=== PATIENT | female | born 1950 | race Caucasian/White ===

== ENCOUNTER 2021-12-01 10:21 | Inpatient (IN) ==
[2021-12-01] MEDS ORDERED: ALBUTEROL/IPRATROPIUM 3 ML NEB RESP TX STA (10:48)
[2021-12-01] MEDS ORDERED: SODIUM CHLORIDE 0.9% 1,000 ML IV STA ×2 (10:48→11:34)
[2021-12-01] MEDS ORDERED: methylPREDNISolone SOD SUC 125 MG/2 ML VIAL IV STA (10:48)
[2021-12-01] MEDS ORDERED: ONDANSETRON 4 MG/2 ML VIAL IV ONE (10:48)
[2021-12-01] MEDS ORDERED: ALBUTEROL 2.5 MG/3 ML NEB RESP TX STA (10:48)
[2021-12-01] MEDS ORDERED: CEFEPIME 1,000 MG in SODIUM CHLORIDE 0.9% 100 ML IV STA (11:34)
[2021-12-01] MEDS ORDERED: VANCOMYCIN INJ 1,000 MG in SODIUM CHLORIDE 0.9% 250 ML IV STA (11:34)
[2021-12-01] MEDS ORDERED: NOREPINEPHRINE 8 MG in SODIUM CHLORIDE 0.9% 242 ML IV PRN (12:14)
[2021-12-01 12:17] LABS: Hematocrit 18.7 VOL% (35.7-47.0); Lymphocytes # 0.1 10*3/uL (1.4-4.0); Lymphocytes % 17.1 % (21.3-54.2); Mean Corpuscular HGB Conc 32.6 GM/DL (32-36); Mean Platelet Volume 9.7 FL (9.6-12.0); Monocytes # 0.1 10*3/uL (0.11-0.8); Monocytes % 14.6 % (1.7-12.7); Neutrophils % 68.3 % (38.7-73.9); Platelet Count 265 T/CUMM (130-400); Red Cell Distribution Width 15.6 % (9.3-17.3)
[2021-12-01 12:20] LABS: Arterial Base Excess iSTAT -5 MMOL/L (-2.5-2.5); Arterial O2 Saturation iSTAT 100 % (95-100); Arterial PCO2 iSTAT 48 MM HG (35-48); Arterial PO2 iSTAT 233 MM HG (80-95); Arterial Total CO2 iSTAT 23 MMO/L (23-27); Arterial pH iSTAT 7.273 (7.35-7.45)
[2021-12-01 12:27] LABS: Hemoglobin 6.1 GM/DL (12.0-16.0); White Blood Count 0.4 T/CUMM (4-12)
[2021-12-01 12:29] LABS: INR 1.1; PT Patient Result 11.9 SECS (10.5-12.0)
[2021-12-01] MEDS ORDERED: SODIUM CHLORIDE 0.9% 1,000 ML IV PRN (12:31)
[2021-12-01 12:39] LABS: Albumin 2.2 G/DL (3.4-5.0); Bilirubin,Total 0.8 MG/DL (0.20-1.00); Osmolality,Calculated 283.2 MOS/KG (273-304); Potassium 4.4 MMOL/L (3.5-5.1); Total Protein 5.8 G/DL (6.4-8.2)
[2021-12-01 13:00] LABS: Band Neutrophils 6 % (0-10); Lymphocytes 28 % (20-55); Nucleated Red Blood Cells 1 (0-5)
[2021-12-01 13:02] LABS: Ovalocytes Slight; Platelet Estimate Normal; Polychromasia Slight
[2021-12-01 13:05] LABS: Anisocytosis Slight; Total Cells Counted 100
[2021-12-01] MEDS ORDERED: ALBUTEROL 2.5 MG/3 ML NEB RESP TX PRN (13:14)
[2021-12-01] MEDS ORDERED: PHENYLEPHRINE DRIP 40 MG/250 ML PREMIX IV ONE (13:58)
[2021-12-01] MEDS: PHENYLEPHRINE DRIP 40 MG/250 ML PREMIX IV PRN (14:00)
[2021-12-01] MEDS ORDERED: ETOMIDATE 20 MG/10 ML VIAL IV ONE (14:04)
[2021-12-01] MEDS ORDERED: ROCURONIUM 100 MG/10 ML VIAL IV ONE (14:04)
[2021-12-01] MEDS ORDERED: HYDROCORTISONE 100 MG VIAL IV SCH (15:30)
[2021-12-01] MEDS: MICAFUNGIN 100 MG in SODIUM CHLORIDE 0.9% 100 ML IV SCH (17:01)
[2021-12-01] MEDS ORDERED: LACTATED RINGERS 1,000 ML IV ONE (17:02)
[2021-12-01 17:15] LABS: Mucus,Urine Occasional /LPF (Occasional); RBC,Urine 4 /HPF (0-4); Squamous Epithelial Cell,Urine Occasional /HPF (0-10); Urine Appearance Clear (Clear); Urine Color Yellow (Yellow)
[2021-12-01 17:16] LABS: Bilirubin,Urine Negative (Negative); Blood, Urine Moderate mg/dL (Negative); Glucose,Urine (UA) Negative (Negative); Ketones,Urine Negative (Negative); Nitrite,Urine Negative (Negative); Protein,Urine 100 mg/dL (Negative); Urine Specific Gravity 1.015 (1.001-1.035); Urine Urobilinogen 0.2 eU/dL (<2.0)
[2021-12-01] MEDS: methylPREDNISolone SOD SUC 125 MG/2 ML VIAL IV SCH (17:52)
[2021-12-01] MEDS ORDERED: MIDAZOLAM 2 MG/2 ML VIAL IV ONE (18:11)
[2021-12-01] MEDS: ALBUTEROL/IPRATROPIUM 3 ML NEB RESP TX SCH (19:22)
[2021-12-01] MEDS ORDERED: FILGRASTIM-SNDZ 300 MCG/0.5 ML SYRINGE SUBCUT SCH (21:00)
[2021-12-01] MEDS: MIDAZOLAM 100 MG in SODIUM CHLORIDE 0.9% 80 ML IV PRN (21:50)
[2021-12-02] MEDS: methylPREDNISolone SOD SUC 125 MG/2 ML VIAL IV SCH ×3 (01:11→16:33)
[2021-12-02] MEDS: fentaNYL INJ 1,250 MCG in SODIUM CHLORIDE 0.9% 225 ML IV PRN ×2 (01:25→20:34)
[2021-12-02 03:52] LABS: ABG Base Excess -10.8 MMOL/L (-2.5-2.5); ABG HCO3 16.1 MMOL/L (20-26); ABG Oxygen Saturation 99.2 % (95-100); ABG PCO2 64.6 MM HG (35-48); ABG TCO2 18.7 MMOL/L (23-27)
[2021-12-02 03:58] LABS: ABG PH 7.113 (7.35-7.45)
[2021-12-02 04:03] LABS: Hematocrit 35.3 VOL% (35.7-47.0); Hemoglobin 11.1 GM/DL (12.0-16.0); Immature Granulocytes % 13.3 %; Immature Granulocytes Absolute 0.02 #; Mean Corpuscular HGB Conc 31.4 GM/DL (32-36); Mean Corpuscular Volume 88.7 FL (87-102); Mean Platelet Volume 9.6 FL (9.6-12.0); NRBC # 0.03 10*3/uL; Neutrophils % 46.7 % (38.7-73.9); Platelet Count 203 T/CUMM (130-400); Red Blood Count 3.98 MC/CUMM (3.8-5.5); Red Cell Distribution Width 16.5 % (9.3-17.3)
[2021-12-02] MEDS ORDERED: SODIUM BICARBONATE 50 MEQ/50 ML VIAL IV ONE (04:06)
[2021-12-02 04:07] LABS: White Blood Count 0.2 T/CUMM (4-12)
[2021-12-02 04:12] LABS: INR 1.2; PT Patient Result 12.9 SECS (10.5-12.0)
[2021-12-02 04:18] LABS: Albumin 1.7 G/DL (3.4-5.0); Bilirubin,Total 1.4 MG/DL (0.20-1.00); Calcium 7.9 MG/DL (8.5-10.1); Osmolality,Calculated 285.8 MOS/KG (273-304); Potassium 4.8 MMOL/L (3.5-5.1); Total Protein 6.4 G/DL (6.4-8.2)
[2021-12-02 04:37] LABS: Lymphocytes 60 % (20-55); Platelet Estimate Adequate; Total Cells Counted 100
[2021-12-02 04:38] LABS: Burr Cells Few
[2021-12-02] MEDS: ALBUTEROL/IPRATROPIUM 3 ML NEB RESP TX SCH ×4 (07:14→19:40)
[2021-12-02] MEDS ORDERED: MAGNESIUM SULF RIDER 2 GM/50 ML PREMIX IV ONE (08:18)
[2021-12-02] MEDS ORDERED: FILGRASTIM-SNDZ 300 MCG/0.5 ML SYRINGE SUBCUT SCH (09:00)
[2021-12-02 09:08] LABS: ABG Base Excess -7.1 MMOL/L (-2.5-2.5); ABG HCO3 18.7 MMOL/L (20-26); ABG Oxygen Saturation 98.8 % (95-100); ABG PCO2 48.1 MM HG (35-48); ABG PH 7.235 (7.35-7.45)
[2021-12-02] MEDS ORDERED: dimenhyDRINATE 50 MG TABLET PO PRN (09:22)
[2021-12-02] MEDS ORDERED: ALPRAZolam 0.5 MG TABLET PO PRN (09:25)
[2021-12-02] MEDS: CEFEPIME 1,000 MG in SODIUM CHLORIDE 0.9% 100 ML IV SCH (09:27)
[2021-12-02] MEDS ORDERED: FAMOTIDINE 20 MG/2 ML VIAL IV SCH (09:30)
[2021-12-02] MEDS: ALBUMIN 25% 25 GM/100 ML VIAL IV SCH ×2 (09:40→17:16)
[2021-12-02] MEDS ORDERED: VANCOMYCIN INJ 1,000 MG in SODIUM CHLORIDE 0.9% 250 ML IV PRN (10:14)
[2021-12-02] MEDS ORDERED: VANCOMYCIN INJ 1,000 MG in SODIUM CHLORIDE 0.9% 250 ML IV ONE (10:30)
[2021-12-02] MEDS: FILGRASTIM-SNDZ 300 MCG/0.5 ML SYRINGE SUBCUT SCH (10:47)
[2021-12-02] MEDS: PHENYLEPHRINE DRIP 40 MG/250 ML PREMIX IV PRN ×2 (14:38→23:04)
[2021-12-02] MEDS ORDERED: ALPRAZolam 0.5 MG TABLET PO SCH (15:00)
[2021-12-02] MEDS: MICAFUNGIN 100 MG in SODIUM CHLORIDE 0.9% 100 ML IV SCH (16:36)
[2021-12-02] MEDS: buPROPion XL 150 MG TABLET PO SCH (20:22)
[2021-12-03] MEDS: methylPREDNISolone SOD SUC 125 MG/2 ML VIAL IV SCH ×3 (00:36→15:13)
[2021-12-03] MEDS: ALBUTEROL/IPRATROPIUM 3 ML NEB RESP TX SCH ×4 (00:40→19:35)
[2021-12-03] MEDS: ALBUMIN 25% 25 GM/100 ML VIAL IV SCH ×2 (02:20→08:55)
[2021-12-03 04:45] LABS: ABG Base Excess -3.7 MMOL/L (-2.5-2.5); ABG HCO3 21.3 MMOL/L (20-26); ABG Oxygen Saturation 99.5 % (95-100); ABG PCO2 30.9 MM HG (35-48); ABG PH 7.421 (7.35-7.45); ABG TCO2 18.9 MMOL/L (23-27); Hematocrit 23.1 VOL% (35.7-47.0); Hemoglobin 7.8 GM/DL (12.0-16.0); Immature Granulocytes % 4.5 %; Immature Granulocytes Absolute 0.02 #; Lymphocytes # 0.1 10*3/uL (1.4-4.0); Lymphocytes % 11.4 % (21.3-54.2); Mean Corpuscular HGB Conc 33.8 GM/DL (32-36); Mean Corpuscular Volume 83.1 FL (87-102); Mean Platelet Volume 9.5 FL (9.6-12.0); Monocytes # 0.1 10*3/uL (0.11-0.8); Monocytes % 11.4 % (1.7-12.7); Neutrophils % 72.7 % (38.7-73.9); Platelet Count 125 T/CUMM (130-400); Red Blood Count 2.78 MC/CUMM (3.8-5.5); Red Cell Distribution Width 16.7 % (9.3-17.3)
[2021-12-03 04:46] LABS: White Blood Count 0.4 T/CUMM (4-12)
[2021-12-03 05:02] LABS: Albumin 2.5 G/DL (3.4-5.0); Bilirubin,Total 1.2 MG/DL (0.20-1.00); Calcium 8.8 MG/DL (8.5-10.1); Osmolality,Calculated 304.8 MOS/KG (273-304); Potassium 3.3 MMOL/L (3.5-5.1); Total Protein 5.9 G/DL (6.4-8.2)
[2021-12-03 05:05] LABS: Band Neutrophils 8 % (0-10); Burr Cells Slight; Hypochromia Slight; Lymphocytes 28 % (20-55); Microcytosis Slight; Total Cells Counted 100
[2021-12-03] MEDS: CEFEPIME 1,000 MG in SODIUM CHLORIDE 0.9% 100 ML IV SCH ×2 (07:37→20:26)
[2021-12-03] MEDS: FAMOTIDINE 20 MG/2 ML VIAL IV SCH (08:55)
[2021-12-03] MEDS: buPROPion XL 150 MG TABLET PO SCH ×2 (08:56→20:26)
[2021-12-03] MEDS: FILGRASTIM-SNDZ 300 MCG/0.5 ML SYRINGE SUBCUT SCH (09:01)
[2021-12-03] MEDS ORDERED: ALPRAZolam 0.5 MG TABLET PO ONE (09:49)
[2021-12-03] MEDS: POTASSIUM CHLORIDE 20 MEQ TABLET PO PRN ×3 (09:59→15:12)
[2021-12-03] MEDS: fentaNYL INJ 1,250 MCG in SODIUM CHLORIDE 0.9% 225 ML IV PRN (10:22)
[2021-12-03] MEDS: MORPHINE 2 MG/1 ML SYRINGE IV PRN (13:48)
[2021-12-03] MEDS: ALPRAZolam 0.5 MG TABLET PO SCH ×2 (15:13→20:26)
[2021-12-03] MEDS ORDERED: GLUCAGON 1 MG VIAL IM PRN (15:54)
[2021-12-03] MEDS ORDERED: DEXTROSE 10% 250 ML BAG IV PRN (15:56)
[2021-12-03] MEDS: MICAFUNGIN 100 MG in SODIUM CHLORIDE 0.9% 100 ML IV SCH (17:06)
[2021-12-03] MEDS ORDERED: VANCOMYCIN INJ 1,000 MG in SODIUM CHLORIDE 0.9% 250 ML IV ONE (22:00)
[2021-12-03] MEDS: MIDAZOLAM 100 MG in SODIUM CHLORIDE 0.9% 80 ML IV PRN (22:50)
[2021-12-04] MEDS: ALBUTEROL/IPRATROPIUM 3 ML NEB RESP TX SCH ×4 (00:20→19:30)
[2021-12-04] MEDS: methylPREDNISolone SOD SUC 125 MG/2 ML VIAL IV SCH ×2 (00:30→10:32)
[2021-12-04 04:23] LABS: ABG Base Excess -2.1 MMOL/L (-2.5-2.5); ABG HCO3 22.6 MMOL/L (20-26); ABG Oxygen Saturation 97.8 % (95-100); ABG PCO2 32.2 MM HG (35-48); ABG PH 7.435 (7.35-7.45); ABG TCO2 20.2 MMOL/L (23-27)
[2021-12-04 04:29] LABS: Basophils % 1.9 % (0.0-0.8); Hematocrit 24.2 VOL% (35.7-47.0); Hemoglobin 8.1 GM/DL (12.0-16.0); Immature Granulocytes % 1.9 %; Immature Granulocytes Absolute 0.02 #; Lymphocytes # 0.1 10*3/uL (1.4-4.0); Lymphocytes % 7.7 % (21.3-54.2); Mean Corpuscular HGB Conc 33.5 GM/DL (32-36); Mean Corpuscular Volume 84.6 FL (87-102); Mean Platelet Volume 10.7 FL (9.6-12.0); Monocytes # 0.1 10*3/uL (0.11-0.8); Monocytes % 9.6 % (1.7-12.7); Neutrophils % 78.9 % (38.7-73.9); Platelet Count 86 T/CUMM (130-400); Red Blood Count 2.86 MC/CUMM (3.8-5.5); Red Cell Distribution Width 17.2 % (9.3-17.3)
[2021-12-04 04:43] LABS: Albumin 2.3 G/DL (3.4-5.0); Calcium 8.9 MG/DL (8.5-10.1); Osmolality,Calculated 319.3 MOS/KG (273-304); Potassium 3.9 MMOL/L (3.5-5.1); Total Protein 5.5 G/DL (6.4-8.2)
[2021-12-04 04:54] LABS: Band Neutrophils 3 % (0-10); Burr Cells Slight; Eosinophils 1 % (0-10); Hypochromia Slight; Lymphocytes 9 % (20-55); Total Cells Counted 100
[2021-12-04 04:55] LABS: Microcytosis Slight
[2021-12-04] MEDS: FAMOTIDINE 20 MG/2 ML VIAL IV SCH (10:29)
[2021-12-04] MEDS: ALPRAZolam 0.5 MG TABLET PO SCH ×3 (10:30→20:45)
[2021-12-04] MEDS: buPROPion XL 150 MG TABLET PO SCH ×2 (10:30→20:45)
[2021-12-04] MEDS: POTASSIUM CHLORIDE 20 MEQ TABLET PO PRN (10:30)
[2021-12-04] MEDS: FILGRASTIM-SNDZ 300 MCG/0.5 ML SYRINGE SUBCUT SCH (10:30)
[2021-12-04] MEDS: methylPREDNISolone SOD SUC 40 MG/1 ML VIAL IV SCH ×2 (10:30→18:52)
[2021-12-04] MEDS: CEFEPIME 1,000 MG in SODIUM CHLORIDE 0.9% 100 ML IV SCH ×2 (10:31→22:30)
[2021-12-04] MEDS: INSULIN REGULAR 100 UNIT/ML SUBCUT SCH ×2 (12:31→18:52)
[2021-12-04] MEDS: MICAFUNGIN 100 MG in SODIUM CHLORIDE 0.9% 100 ML IV SCH (18:30)
[2021-12-04] MEDS: VANCOMYCIN INJ 1,000 MG in SODIUM CHLORIDE 0.9% 250 ML IV SCH (20:45)
[2021-12-05] MEDS: INSULIN REGULAR 100 UNIT/ML SUBCUT SCH ×5 (00:28→23:58)
[2021-12-05] MEDS: MIDAZOLAM 100 MG in SODIUM CHLORIDE 0.9% 80 ML IV PRN (01:14)
[2021-12-05] MEDS: ALBUTEROL/IPRATROPIUM 3 ML NEB RESP TX SCH ×4 (01:20→18:47)
[2021-12-05] MEDS: methylPREDNISolone SOD SUC 40 MG/1 ML VIAL IV SCH ×3 (02:44→18:07)
[2021-12-05 05:17] LABS: Basophils % 2.2 % (0.0-0.8); Hematocrit 24.4 VOL% (35.7-47.0); Hemoglobin 7.9 GM/DL (12.0-16.0); Immature Granulocytes % 5.5 %; Lymphocytes # 0.1 10*3/uL (1.4-4.0); Lymphocytes % 6.6 % (21.3-54.2); Mean Corpuscular HGB Conc 32.4 GM/DL (32-36); Mean Corpuscular Volume 88.7 FL (87-102); Monocytes # 0.2 10*3/uL (0.11-0.8); Monocytes % 11.5 % (1.7-12.7); NRBC # 0.02 10*3/uL; Neutrophils % 74.2 % (38.7-73.9); Platelet Count 63 T/CUMM (130-400); Red Blood Count 2.75 MC/CUMM (3.8-5.5); Red Cell Distribution Width 18.3 % (9.3-17.3); White Blood Count 1.8 T/CUMM (4-12)
[2021-12-05 05:18] LABS: ABG Base Excess -3.3 MMOL/L (-2.5-2.5); ABG HCO3 21.7 MMOL/L (20-26); ABG Oxygen Saturation 97.9 % (95-100); ABG PCO2 36.1 MM HG (35-48); ABG PH 7.381 (7.35-7.45)
[2021-12-05 05:43] LABS: Albumin 1.9 G/DL (3.4-5.0); Bilirubin,Total 0.7 MG/DL (0.20-1.00); Calcium 7.7 MG/DL (8.5-10.1); Osmolality,Calculated 323.9 MOS/KG (273-304); Potassium 3.9 MMOL/L (3.5-5.1); Total Protein 4.9 G/DL (6.4-8.2)
[2021-12-05 05:52] LABS: Band Neutrophils 7 % (0-10); Hypochromia 1+; Lymphocytes 11 % (20-55); Metamyelocytes 2 %; Myelocytes 3 %; Platelet Estimate Decreased; Total Cells Counted 100
[2021-12-05] MEDS: POTASSIUM CHLORIDE 20 MEQ TABLET PO PRN (06:25)
[2021-12-05] MEDS: FAMOTIDINE 20 MG/2 ML VIAL IV SCH (09:41)
[2021-12-05] MEDS: ALPRAZolam 0.5 MG TABLET PO SCH ×3 (09:41→21:09)
[2021-12-05] MEDS: buPROPion XL 150 MG TABLET PO SCH ×2 (09:41→21:09)
[2021-12-05] MEDS ORDERED: ALBUMIN 25% 25 GM/100 ML VIAL IV ONE (10:30)
[2021-12-05] MEDS ORDERED: POTASSIUM PHOSPHATE 30 MMOL in SODIUM CHLORIDE 0.9% 250 ML IV ONE (11:00)
[2021-12-05] MEDS: CEFEPIME 1,000 MG in SODIUM CHLORIDE 0.9% 100 ML IV SCH ×2 (11:35→23:27)
[2021-12-05] MEDS: FILGRASTIM-SNDZ 300 MCG/0.5 ML SYRINGE SUBCUT SCH (11:39)
[2021-12-05] MEDS: DEXTROSE 5% 1,000 ML IV SCH (11:39)
[2021-12-05] MEDS: MORPHINE 2 MG/1 ML SYRINGE IV PRN (11:40)
[2021-12-05] MEDS: MICAFUNGIN 100 MG in SODIUM CHLORIDE 0.9% 100 ML IV SCH (16:27)
[2021-12-05] MEDS: VANCOMYCIN INJ 1,000 MG in SODIUM CHLORIDE 0.9% 250 ML IV SCH (21:09)
[2021-12-06] MEDS: ALBUTEROL/IPRATROPIUM 3 ML NEB RESP TX SCH ×4 (00:26→19:21)
[2021-12-06] MEDS: methylPREDNISolone SOD SUC 40 MG/1 ML VIAL IV SCH ×3 (02:51→17:41)
[2021-12-06 04:57] LABS: ABG HCO3 21.9 MMOL/L (20-26); ABG Oxygen Saturation 98.2 % (95-100); ABG PCO2 38.9 MM HG (35-48); ABG PH 7.363 (7.35-7.45); ABG TCO2 20.7 MMOL/L (23-27)
[2021-12-06 05:01] LABS: Basophils # 0.1 10*3/uL (0.0-0.2); Basophils % 1.4 % (0.0-0.8); Hematocrit 25.3 VOL% (35.7-47.0); Hemoglobin 8.3 GM/DL (12.0-16.0); Immature Granulocytes % 8.3 %; Immature Granulocytes Absolute 0.48 #; Lymphocytes # 0.2 10*3/uL (1.4-4.0); Mean Corpuscular HGB Conc 32.8 GM/DL (32-36); Mean Corpuscular Volume 89.1 FL (87-102); Mean Platelet Volume 11.5 FL (9.6-12.0); Monocytes # 0.5 10*3/uL (0.11-0.8); Monocytes % 7.8 % (1.7-12.7); NRBC # 0.04 10*3/uL; Neutrophils % 78.5 % (38.7-73.9); Red Blood Count 2.84 MC/CUMM (3.8-5.5); Red Cell Distribution Width 18.3 % (9.3-17.3)
[2021-12-06 05:07] LABS: Platelet Count 54 T/CUMM (130-400); White Blood Count 5.8 T/CUMM (4-12)
[2021-12-06 05:19] LABS: Albumin 2.3 G/DL (3.4-5.0); Bilirubin,Total 0.6 MG/DL (0.20-1.00); Calcium 7.9 MG/DL (8.5-10.1); Osmolality,Calculated 314.7 MOS/KG (273-304); Potassium 5.1 MMOL/L (3.5-5.1); Total Protein 5.2 G/DL (6.4-8.2)
[2021-12-06 05:31] LABS: Band Neutrophils 1 % (0-10); Eosinophils 1 % (0-10); Lymphocytes 2 % (20-55); Metamyelocytes 1 %; Myelocytes 1 %; Promyelocytes 3 %; Total Cells Counted 100
[2021-12-06 05:32] LABS: Microcytosis 1+; Platelet Estimate Decreased; Tear Drop Cells Slight
[2021-12-06] MEDS: DEXTROSE 5% 1,000 ML IV SCH (06:15)
[2021-12-06] MEDS: INSULIN REGULAR 100 UNIT/ML SUBCUT SCH ×4 (06:15→23:44)
[2021-12-06] MEDS: ALPRAZolam 0.5 MG TABLET PO SCH ×3 (08:21→20:48)
[2021-12-06] MEDS: FAMOTIDINE 20 MG/2 ML VIAL IV SCH (08:21)
[2021-12-06] MEDS: buPROPion XL 150 MG TABLET PO SCH ×2 (08:21→20:47)
[2021-12-06] MEDS: FILGRASTIM-SNDZ 300 MCG/0.5 ML SYRINGE SUBCUT SCH (08:22)
[2021-12-06] MEDS: CEFEPIME 1,000 MG in SODIUM CHLORIDE 0.9% 100 ML IV SCH ×2 (10:02→23:44)
[2021-12-06] MEDS: DEXMEDETOMIDINE 200 MCG in SODIUM CHLORIDE 0.9% 48 ML IV PRN (16:22)
[2021-12-06] MEDS: MICAFUNGIN 100 MG in SODIUM CHLORIDE 0.9% 100 ML IV SCH (17:41)
[2021-12-06] MEDS: VANCOMYCIN INJ 1,000 MG in SODIUM CHLORIDE 0.9% 250 ML IV SCH (21:25)
[2021-12-07] MEDS: ALBUTEROL/IPRATROPIUM 3 ML NEB RESP TX SCH ×4 (01:06→19:05)
[2021-12-07] MEDS: methylPREDNISolone SOD SUC 40 MG/1 ML VIAL IV SCH ×3 (01:51→21:00)
[2021-12-07] MEDS: DEXTROSE 5% 1,000 ML IV SCH (03:17)
[2021-12-07 04:29] LABS: ABG HCO3 23.6 MMOL/L (20-26); ABG Oxygen Saturation 98.6 % (95-100); ABG PCO2 33.9 MM HG (35-48); ABG PH 7.436 (7.35-7.45); ABG TCO2 21.1 MMOL/L (23-27)
[2021-12-07 04:35] LABS: Basophils % 0.1 % (0.0-0.8); Hematocrit 26.2 VOL% (35.7-47.0); Hemoglobin 8.5 GM/DL (12.0-16.0); Immature Granulocytes % 9.5 %; Immature Granulocytes Absolute 1.27 #; Lymphocytes # 0.4 10*3/uL (1.4-4.0); Lymphocytes % 3.1 % (21.3-54.2); Mean Corpuscular HGB Conc 32.4 GM/DL (32-36); Mean Corpuscular Volume 87.3 FL (87-102); Mean Platelet Volume 12.9 FL (9.6-12.0); Monocytes # 0.8 10*3/uL (0.11-0.8); Monocytes % 6.1 % (1.7-12.7); NRBC # 0.05 10*3/uL; Neutrophils % 81.2 % (38.7-73.9); Red Cell Distribution Width 17.8 % (9.3-17.3)
[2021-12-07 04:50] LABS: Phosphorous 2.5 MG/DL (2.5-4.9)
[2021-12-07 04:55] LABS: Albumin 2.1 G/DL (3.4-5.0); Bilirubin,Total 0.8 MG/DL (0.20-1.00); Calcium 7.8 MG/DL (8.5-10.1); Osmolality,Calculated 309.7 MOS/KG (273-304); Platelet Count 72 T/CUMM (130-400); Potassium 5.2 MMOL/L (3.5-5.1); White Blood Count 13.4 T/CUMM (4-12)
[2021-12-07 05:01] LABS: Band Neutrophils 4 % (0-10); Lymphocytes 2 % (20-55); Platelet Estimate Decreased; Total Cells Counted 100
[2021-12-07 05:02] LABS: Hypochromia Slight; Microcytosis Slight
[2021-12-07] MEDS: INSULIN REGULAR 100 UNIT/ML SUBCUT SCH ×4 (05:11→23:45)
[2021-12-07] MEDS: FAMOTIDINE 20 MG/2 ML VIAL IV SCH (09:06)
[2021-12-07] MEDS: ALPRAZolam 0.5 MG TABLET PO SCH ×3 (09:07→21:00)
[2021-12-07] MEDS: buPROPion 75 MG TABLET PO SCH ×2 (09:27→21:00)
[2021-12-07] MEDS: buPROPion XL 150 MG TABLET PO SCH (09:27)
[2021-12-07] MEDS: MORPHINE 2 MG/1 ML SYRINGE IV PRN (10:56)
[2021-12-07] MEDS: CEFEPIME 1,000 MG in SODIUM CHLORIDE 0.9% 100 ML IV SCH ×2 (10:57→23:00)
[2021-12-07] MEDS: POLYETHYLENE GLYCOL POWDER 17 GM PACK PO SCH (11:38)
[2021-12-07] MEDS ORDERED: FUROSEMIDE 20 MG/2 ML VIAL IV ONE (11:51)
[2021-12-07] MEDS: fentaNYL INJ 1,250 MCG in SODIUM CHLORIDE 0.9% 225 ML IV PRN (11:54)
[2021-12-07 16:18] LABS: Calcium 7.8 MG/DL (8.5-10.1); Osmolality,Calculated 308.4 MOS/KG (273-304); Potassium 5.3 MMOL/L (3.5-5.1)
[2021-12-07] MEDS: VANCOMYCIN INJ 1,000 MG in SODIUM CHLORIDE 0.9% 250 ML IV SCH (21:00)
[2021-12-08] MEDS: ALBUTEROL/IPRATROPIUM 3 ML NEB RESP TX SCH ×4 (00:16→19:20)
[2021-12-08 03:34] LABS: Basophils # 0.1 10*3/uL (0.0-0.2); Basophils % 0.7 % (0.0-0.8); Hematocrit 28.4 VOL% (35.7-47.0); Hemoglobin 8.8 GM/DL (12.0-16.0); Immature Granulocytes % 10.1 %; Immature Granulocytes Absolute 1.19 #; Lymphocytes # 0.6 10*3/uL (1.4-4.0); Lymphocytes % 4.8 % (21.3-54.2); Mean Corpuscular Volume 88.8 FL (87-102); Mean Platelet Volume 12.4 FL (9.6-12.0); Monocytes # 0.6 10*3/uL (0.11-0.8); Monocytes % 5.3 % (1.7-12.7); NRBC # 0.11 10*3/uL; Neutrophils % 79.1 % (38.7-73.9); Platelet Count 102 T/CUMM (130-400); Red Cell Distribution Width 17.5 % (9.3-17.3); White Blood Count 11.7 T/CUMM (4-12)
[2021-12-08 03:35] LABS: ABG Base Excess 0.3 MMOL/L (-2.5-2.5); ABG HCO3 24.7 MMOL/L (20-26); ABG Oxygen Saturation 95.6 % (95-100); ABG PCO2 37.6 MM HG (35-48); ABG PH 7.422 (7.35-7.45); ABG PO2 82.1 MM HG (80-95); ABG TCO2 22.3 MMOL/L (23-27)
[2021-12-08 03:50] LABS: Albumin 2.1 G/DL (3.4-5.0); Bilirubin,Total 0.7 MG/DL (0.20-1.00); Calcium 7.9 MG/DL (8.5-10.1); Total Protein 5.1 G/DL (6.4-8.2)
[2021-12-08 04:10] LABS: Band Neutrophils 2 % (0-10); Lymphocytes 8 % (20-55); Nucleated Red Blood Cells 1 (0-5); Total Cells Counted 100
[2021-12-08 04:11] LABS: Hypochromia Slight; Microcytosis Slight
[2021-12-08] MEDS: INSULIN REGULAR 100 UNIT/ML SUBCUT SCH ×3 (05:37→17:59)
[2021-12-08] MEDS ORDERED: MIDAZOLAM 2 MG/2 ML VIAL IV ONE (07:35)
[2021-12-08] MEDS ORDERED: MIDAZOLAM 2 MG/2 ML VIAL ONE (07:37)
[2021-12-08] MEDS: methylPREDNISolone SOD SUC 40 MG/1 ML VIAL IV SCH ×2 (08:53→21:00)
[2021-12-08] MEDS: POLYETHYLENE GLYCOL POWDER 17 GM PACK PO SCH (08:53)
[2021-12-08] MEDS: ALPRAZolam 0.5 MG TABLET PO SCH ×3 (08:53→21:00)
[2021-12-08] MEDS: FAMOTIDINE 20 MG/2 ML VIAL IV SCH (08:54)
[2021-12-08] MEDS: buPROPion 75 MG TABLET PO SCH ×2 (08:54→21:00)
[2021-12-08] MEDS: CEFEPIME 1,000 MG in SODIUM CHLORIDE 0.9% 100 ML IV SCH ×2 (10:41→23:00)
[2021-12-08] MEDS: MORPHINE 2 MG/1 ML SYRINGE IV PRN (13:45)
[2021-12-08] MEDS: fentaNYL INJ 1,250 MCG in SODIUM CHLORIDE 0.9% 225 ML IV PRN (13:45)
[2021-12-08] MEDS ORDERED: ALTEPLASE 2 MG VIAL IV ONE (16:50)
[2021-12-08] MEDS: VANCOMYCIN INJ 1,000 MG in SODIUM CHLORIDE 0.9% 250 ML IV SCH (21:00)
[2021-12-09] MEDS: INSULIN REGULAR 100 UNIT/ML SUBCUT SCH ×4 (00:45→18:36)
[2021-12-09] MEDS: ALBUTEROL/IPRATROPIUM 3 ML NEB RESP TX SCH ×4 (00:55→19:29)
[2021-12-09 03:24] LABS: ABG Base Excess 0.8 MMOL/L (-2.5-2.5); ABG HCO3 25.1 MMOL/L (20-26); ABG Oxygen Saturation 95.6 % (95-100); ABG PCO2 39.1 MM HG (35-48); ABG PH 7.418 (7.35-7.45); ABG PO2 79.5 MM HG (80-95); ABG TCO2 23.7 MMOL/L (23-27)
[2021-12-09 03:32] LABS: Basophils % 0.4 % (0.0-0.8); Hematocrit 23.9 VOL% (35.7-47.0); Hemoglobin 7.5 GM/DL (12.0-16.0); Immature Granulocytes % 6.8 %; Immature Granulocytes Absolute 0.63 #; Lymphocytes # 0.6 10*3/uL (1.4-4.0); Lymphocytes % 6.1 % (21.3-54.2); Mean Corpuscular HGB Conc 31.4 GM/DL (32-36); Mean Corpuscular Volume 89.5 FL (87-102); Mean Platelet Volume 12.1 FL (9.6-12.0); Monocytes # 0.7 10*3/uL (0.11-0.8); NRBC # 0.05 10*3/uL; Neutrophils % 79.7 % (38.7-73.9); Platelet Count 106 T/CUMM (130-400); Red Blood Count 2.67 MC/CUMM (3.8-5.5); White Blood Count 9.3 T/CUMM (4-12)
[2021-12-09 03:51] LABS: Band Neutrophils 2 % (0-10); Hypochromia Slight; Lymphocytes 4 % (20-55); Microcytosis Slight; Total Cells Counted 100
[2021-12-09 03:59] LABS: Albumin 1.8 G/DL (3.4-5.0); Bilirubin,Total 0.6 MG/DL (0.20-1.00); Calcium 7.6 MG/DL (8.5-10.1); Osmolality,Calculated 301.8 MOS/KG (273-304); Total Protein 4.8 G/DL (6.4-8.2)
[2021-12-09] MEDS: methylPREDNISolone SOD SUC 40 MG/1 ML VIAL IV SCH ×2 (10:03→21:18)
[2021-12-09] MEDS: POLYETHYLENE GLYCOL POWDER 17 GM PACK PO SCH (10:03)
[2021-12-09] MEDS: FAMOTIDINE 20 MG/2 ML VIAL IV SCH (10:03)
[2021-12-09] MEDS: buPROPion 75 MG TABLET PO SCH ×2 (10:04→21:18)
[2021-12-09] MEDS: ALPRAZolam 0.5 MG TABLET PO SCH ×3 (10:04→21:18)
[2021-12-09] MEDS: QUEtiapine 25 MG TABLET PO SCH ×2 (10:35→21:18)
[2021-12-09] MEDS: fentaNYL INJ 1,250 MCG in SODIUM CHLORIDE 0.9% 225 ML IV PRN (11:25)
[2021-12-09] MEDS: CEFEPIME 1,000 MG in SODIUM CHLORIDE 0.9% 100 ML IV SCH ×2 (16:57→21:23)
[2021-12-09] MEDS: VANCOMYCIN INJ 1,000 MG in SODIUM CHLORIDE 0.9% 250 ML IV SCH (22:44)
[2021-12-10] MEDS: ALBUTEROL/IPRATROPIUM 3 ML NEB RESP TX SCH ×4 (00:05→19:41)
[2021-12-10] MEDS: INSULIN REGULAR 100 UNIT/ML SUBCUT SCH ×4 (00:53→18:49)
[2021-12-10] MEDS: CEFEPIME 1,000 MG in SODIUM CHLORIDE 0.9% 100 ML IV SCH ×2 (02:37→08:10)
[2021-12-10 04:11] LABS: ABG Base Excess 0.6 MMOL/L (-2.5-2.5); ABG HCO3 24.9 MMOL/L (20-26); ABG Oxygen Saturation 97.7 % (95-100); ABG PCO2 41.7 MM HG (35-48); ABG PH 7.394 (7.35-7.45); ABG TCO2 24.1 MMOL/L (23-27)
[2021-12-10 04:15] LABS: Basophils % 0.3 % (0.0-0.8); Hematocrit 22.1 VOL% (35.7-47.0); Hemoglobin 6.8 GM/DL (12.0-16.0); Immature Granulocytes % 7.5 %; Immature Granulocytes Absolute 0.71 #; Lymphocytes # 0.3 10*3/uL (1.4-4.0); Mean Corpuscular HGB Conc 30.8 GM/DL (32-36); Mean Corpuscular Volume 91.3 FL (87-102); Monocytes # 0.3 10*3/uL (0.11-0.8); Monocytes % 3.5 % (1.7-12.7); NRBC # 0.02 10*3/uL; Neutrophils % 85.7 % (38.7-73.9); Platelet Count 146 T/CUMM (130-400); Red Blood Count 2.42 MC/CUMM (3.8-5.5); Red Cell Distribution Width 16.8 % (9.3-17.3); White Blood Count 9.4 T/CUMM (4-12)
[2021-12-10 04:27] LABS: Osmolality,Calculated 295.4 MOS/KG (273-304); Potassium 5.3 MMOL/L (3.5-5.1)
[2021-12-10 04:35] LABS: Phosphorous 3.6 MG/DL (2.5-4.9)
[2021-12-10 04:43] LABS: Band Neutrophils 3 % (0-10); Hypochromia Slight; Lymphocytes 3 % (20-55); Microcytosis Slight; Platelet Estimate Adequate; Total Cells Counted 100
[2021-12-10] MEDS: POLYETHYLENE GLYCOL POWDER 17 GM PACK PO SCH (08:10)
[2021-12-10] MEDS: QUEtiapine 25 MG TABLET PO SCH ×2 (08:11→20:26)
[2021-12-10] MEDS: ALPRAZolam 0.5 MG TABLET PO SCH ×3 (08:11→20:26)
[2021-12-10] MEDS: methylPREDNISolone SOD SUC 40 MG/1 ML VIAL IV SCH ×2 (08:11→20:27)
[2021-12-10] MEDS: FAMOTIDINE 20 MG/2 ML VIAL IV SCH (08:11)
[2021-12-10] MEDS: buPROPion 75 MG TABLET PO SCH ×2 (08:11→20:27)
[2021-12-10] MEDS ORDERED: FUROSEMIDE 20 MG/2 ML VIAL IV PRN (10:03)
[2021-12-10] MEDS: fentaNYL INJ 1,250 MCG in SODIUM CHLORIDE 0.9% 225 ML IV PRN (11:30)
[2021-12-10] MEDS: cefTRIAXone 1,000 MG in SODIUM CHLORIDE 0.9% 100 ML IV SCH (11:39)
[2021-12-10] MEDS: INSULIN GLARGINE 100 UNIT/ML SUBCUT SCH (11:39)
[2021-12-10 18:51] VITALS: BP 132/68
[2021-12-10] MEDS: VANCOMYCIN INJ 1,000 MG in SODIUM CHLORIDE 0.9% 250 ML IV SCH (20:35)
[2021-12-11] MEDS: INSULIN REGULAR 100 UNIT/ML SUBCUT SCH ×4 (00:30→18:22)
[2021-12-11] MEDS: ALBUTEROL/IPRATROPIUM 3 ML NEB RESP TX SCH ×4 (00:31→18:59)
[2021-12-11 04:44] LABS: ABG Base Excess 2.7 MMOL/L (-2.5-2.5); ABG HCO3 26.8 MMOL/L (20-26); ABG Oxygen Saturation 98.3 % (95-100); ABG PCO2 40.5 MM HG (35-48); ABG PH 7.433 (7.35-7.45); ABG TCO2 24.4 MMOL/L (23-27)
[2021-12-11 04:55] LABS: Basophils # 0.1 10*3/uL (0.0-0.2); Basophils % 0.7 % (0.0-0.8); Hematocrit 31.7 VOL% (35.7-47.0); Hemoglobin 10.3 GM/DL (12.0-16.0); Immature Granulocytes % 8.2 %; Immature Granulocytes Absolute 0.82 #; Lymphocytes # 0.3 10*3/uL (1.4-4.0); Lymphocytes % 3.3 % (21.3-54.2); Mean Corpuscular HGB Conc 32.5 GM/DL (32-36); Mean Corpuscular Volume 87.3 FL (87-102); Mean Platelet Volume 11.3 FL (9.6-12.0); Monocytes # 0.4 10*3/uL (0.11-0.8); Monocytes % 3.6 % (1.7-12.7); NRBC # 0.02 10*3/uL; Neutrophils % 84.2 % (38.7-73.9); Platelet Count 209 T/CUMM (130-400); Red Blood Count 3.63 MC/CUMM (3.8-5.5)
[2021-12-11 05:09] LABS: Albumin 1.9 G/DL (3.4-5.0); Bilirubin,Total 0.5 MG/DL (0.20-1.00); Calcium 8.1 MG/DL (8.5-10.1); Osmolality,Calculated 286.8 MOS/KG (273-304); Total Protein 5.4 G/DL (6.4-8.2)
[2021-12-11 05:16] LABS: Band Neutrophils 1 % (0-10); Lymphocytes 4 % (20-55); Platelet Estimate Adequate; Total Cells Counted 100
[2021-12-11] MEDS: fentaNYL INJ 1,250 MCG in SODIUM CHLORIDE 0.9% 225 ML IV PRN (07:45)
[2021-12-11] MEDS: POLYETHYLENE GLYCOL POWDER 17 GM PACK PO SCH (09:23)
[2021-12-11] MEDS: INSULIN GLARGINE 100 UNIT/ML SUBCUT SCH (09:23)
[2021-12-11] MEDS: FAMOTIDINE 20 MG/2 ML VIAL IV SCH (09:23)
[2021-12-11] MEDS: QUEtiapine 25 MG TABLET PO SCH ×2 (09:24→21:19)
[2021-12-11] MEDS: ALPRAZolam 0.5 MG TABLET PO SCH ×3 (09:24→21:19)
[2021-12-11] MEDS: buPROPion 75 MG TABLET PO SCH ×2 (09:24→21:19)
[2021-12-11] MEDS: DEXMEDETOMIDINE 200 MCG in SODIUM CHLORIDE 0.9% 48 ML IV PRN ×3 (09:40→21:56)
[2021-12-11] MEDS: methylPREDNISolone SOD SUC 40 MG/1 ML VIAL IV SCH ×2 (10:29→21:19)
[2021-12-11] MEDS: MORPHINE 2 MG/1 ML SYRINGE IV PRN (10:31)
[2021-12-11] MEDS: cefTRIAXone 1,000 MG in SODIUM CHLORIDE 0.9% 100 ML IV SCH (11:27)
[2021-12-11] MEDS: FUROSEMIDE 40 MG/4 ML VIAL IV SCH (11:27)
[2021-12-11] MEDS: MORPHINE 2 MG/1 ML SYRINGE IV SCH (19:33)
[2021-12-11] MEDS ORDERED: MORPHINE 2 MG/1 ML SYRINGE IV PRN (20:00)
[2021-12-11] MEDS: VANCOMYCIN INJ 1,000 MG in SODIUM CHLORIDE 0.9% 250 ML IV SCH (21:55)
[2021-12-11] MEDS: VANCOMYCIN 50 MG/ML 60 ML/BOTTLE PO SCH (23:18)
[2021-12-12] MEDS: ALBUTEROL/IPRATROPIUM 3 ML NEB RESP TX SCH ×4 (00:28→19:00)
[2021-12-12] MEDS: INSULIN REGULAR 100 UNIT/ML SUBCUT SCH ×4 (00:28→18:25)
[2021-12-12] MEDS: MORPHINE 2 MG/1 ML SYRINGE IV SCH ×5 (02:58→22:40)
[2021-12-12 03:58] LABS: Arterial Base Excess iSTAT 8 MMOL/L (-2.5-2.5); Arterial Bicarbonate iSTAT 31.7 MMOL/L (20-26); Arterial O2 Saturation iSTAT 99 % (95-100); Arterial PCO2 iSTAT 39 MM HG (35-48); Arterial PO2 iSTAT 108 MM HG (80-95); Arterial Total CO2 iSTAT 33 MMO/L (23-27); Arterial pH iSTAT 7.514 (7.35-7.45)
[2021-12-12 04:02] LABS: Basophils % 0.4 % (0.0-0.8); Hemoglobin 10.8 GM/DL (12.0-16.0); Immature Granulocytes % 4.3 %; Immature Granulocytes Absolute 0.34 #; Lymphocytes # 0.3 10*3/uL (1.4-4.0); Lymphocytes % 3.8 % (21.3-54.2); Mean Corpuscular HGB Conc 32.7 GM/DL (32-36); Mean Corpuscular Volume 88.2 FL (87-102); Mean Platelet Volume 11.4 FL (9.6-12.0); Monocytes # 0.2 10*3/uL (0.11-0.8); Monocytes % 2.5 % (1.7-12.7); Platelet Count 230 T/CUMM (130-400); Red Blood Count 3.74 MC/CUMM (3.8-5.5); White Blood Count 7.9 T/CUMM (4-12)
[2021-12-12] MEDS: VANCOMYCIN 50 MG/ML 60 ML/BOTTLE PO SCH ×4 (04:05→22:47)
[2021-12-12 04:15] LABS: Calcium 8.3 MG/DL (8.5-10.1); Potassium 4.9 MMOL/L (3.5-5.1)
[2021-12-12 04:28] LABS: Band Neutrophils 2 % (0-10); Lymphocytes 4 % (20-55); Total Cells Counted 100
[2021-12-12 04:29] LABS: Platelet Estimate Normal
[2021-12-12] MEDS: ZINC OXIDE PASTE 113 GM TUBE TOP PRN (05:06)
[2021-12-12] MEDS: MORPHINE 2 MG/1 ML SYRINGE IV PRN ×3 (05:28→19:39)
[2021-12-12] MEDS: DEXMEDETOMIDINE 200 MCG in SODIUM CHLORIDE 0.9% 48 ML IV PRN ×4 (05:57→21:41)
[2021-12-12] MEDS: QUEtiapine 25 MG TABLET PO SCH ×2 (08:57→20:54)
[2021-12-12] MEDS: POLYETHYLENE GLYCOL POWDER 17 GM PACK PO SCH (08:57)
[2021-12-12] MEDS: buPROPion 75 MG TABLET PO SCH ×2 (08:57→20:54)
[2021-12-12] MEDS: ALPRAZolam 0.5 MG TABLET PO SCH ×3 (08:57→20:54)
[2021-12-12] MEDS: INSULIN GLARGINE 100 UNIT/ML SUBCUT SCH (08:58)
[2021-12-12] MEDS: FAMOTIDINE 20 MG/2 ML VIAL IV SCH (08:58)
[2021-12-12] MEDS: FUROSEMIDE 40 MG/4 ML VIAL IV SCH (08:58)
[2021-12-12] MEDS ORDERED: MAGNESIUM SULF RIDER 2 GM/50 ML PREMIX IV PRN (09:13)
[2021-12-12] MEDS ORDERED: MAGNESIUM SULF RIDER 4 GM/100 ML PREMIX IV PRN (09:13)
[2021-12-12] MEDS: fentaNYL INJ 1,250 MCG in SODIUM CHLORIDE 0.9% 225 ML IV PRN (09:45)
[2021-12-12] MEDS: methylPREDNISolone SOD SUC 40 MG/1 ML VIAL IV SCH ×3 (09:58→22:00)
[2021-12-12] MEDS: cefTRIAXone 1,000 MG in SODIUM CHLORIDE 0.9% 100 ML IV SCH (10:02)
[2021-12-12] MEDS ORDERED: DEXTROSE 10% 250 ML BAG IV PRN (10:45)
[2021-12-12] MEDS ORDERED: LORazepam 2 MG/1 ML VIAL ONE (15:15)
[2021-12-12] MEDS ORDERED: LORazepam 2 MG/1 ML VIAL IV ONE (15:15)
[2021-12-12] MEDS ORDERED: MORPHINE 2 MG/1 ML SYRINGE IV ONE (15:15)
[2021-12-12] MEDS: VANCOMYCIN INJ 1,000 MG in SODIUM CHLORIDE 0.9% 250 ML IV SCH (21:00)
[2021-12-13] MEDS: INSULIN REGULAR 100 UNIT/ML SUBCUT SCH ×4 (00:25→17:38)
[2021-12-13] MEDS: ALBUTEROL/IPRATROPIUM 3 ML NEB RESP TX SCH ×4 (00:25→19:45)
[2021-12-13] MEDS: MORPHINE 2 MG/1 ML SYRINGE IV PRN ×3 (00:45→19:24)
[2021-12-13] MEDS: DEXMEDETOMIDINE 200 MCG in SODIUM CHLORIDE 0.9% 48 ML IV PRN ×4 (02:14→20:07)
[2021-12-13 03:26] LABS: Basophils % 0.3 % (0.0-0.8); Hematocrit 33.3 VOL% (35.7-47.0); Hemoglobin 10.7 GM/DL (12.0-16.0); Immature Granulocytes % 2.1 %; Immature Granulocytes Absolute 0.21 #; Lymphocytes # 0.2 10*3/uL (1.4-4.0); Mean Corpuscular HGB Conc 32.1 GM/DL (32-36); Mean Platelet Volume 10.3 FL (9.6-12.0); Monocytes # 0.2 10*3/uL (0.11-0.8); Monocytes % 1.9 % (1.7-12.7); Neutrophils % 93.7 % (38.7-73.9); Platelet Count 279 T/CUMM (130-400); Red Blood Count 3.74 MC/CUMM (3.8-5.5); Red Cell Distribution Width 15.7 % (9.3-17.3)
[2021-12-13 03:39] LABS: Calcium 8.4 MG/DL (8.5-10.1); Osmolality,Calculated 281.8 MOS/KG (273-304); Potassium 4.1 MMOL/L (3.5-5.1)
[2021-12-13 03:48] LABS: Lymphocytes 2 % (20-55); Total Cells Counted 100
[2021-12-13 03:49] LABS: Platelet Estimate Normal
[2021-12-13 04:02] LABS: Arterial Base Excess iSTAT 10 MMOL/L (-2.5-2.5); Arterial Bicarbonate iSTAT 33.3 MMOL/L (20-26); Arterial O2 Saturation iSTAT 99 % (95-100); Arterial PCO2 iSTAT 38 MM HG (35-48); Arterial PO2 iSTAT 135 MM HG (80-95); Arterial Total CO2 iSTAT 34 MMO/L (23-27); Arterial pH iSTAT 7.548 (7.35-7.45)
[2021-12-13] MEDS: VANCOMYCIN 50 MG/ML 60 ML/BOTTLE PO SCH ×4 (04:32→22:37)
[2021-12-13] MEDS: MORPHINE 2 MG/1 ML SYRINGE IV SCH ×5 (04:33→22:37)
[2021-12-13] MEDS: ZINC OXIDE PASTE 113 GM TUBE TOP PRN ×2 (06:27→22:38)
[2021-12-13] MEDS: buPROPion 75 MG TABLET PO SCH ×3 (09:29→21:21)
[2021-12-13] MEDS: POLYETHYLENE GLYCOL POWDER 17 GM PACK PO SCH (09:29)
[2021-12-13] MEDS: INSULIN GLARGINE 100 UNIT/ML SUBCUT SCH (09:30)
[2021-12-13] MEDS: methylPREDNISolone SOD SUC 40 MG/1 ML VIAL IV SCH ×2 (09:31→22:37)
[2021-12-13] MEDS: FAMOTIDINE 20 MG/2 ML VIAL IV SCH (09:32)
[2021-12-13] MEDS ORDERED: LACTATED RINGERS 500 ML IV ONE (09:36)
[2021-12-13] MEDS: FUROSEMIDE 40 MG/4 ML VIAL IV SCH (09:58)
[2021-12-13] MEDS: ALPRAZolam 0.5 MG TABLET PO SCH ×4 (09:59→21:22)
[2021-12-13] MEDS: QUEtiapine 25 MG TABLET PO SCH ×3 (10:00→21:21)
[2021-12-13] MEDS: cefTRIAXone 1,000 MG in SODIUM CHLORIDE 0.9% 100 ML IV SCH (10:30)
[2021-12-13] MEDS: LORazepam 2 MG/1 ML VIAL IV PRN ×2 (12:08→21:30)
[2021-12-13] MEDS: VANCOMYCIN INJ 1,000 MG in SODIUM CHLORIDE 0.9% 250 ML IV SCH (22:37)
[2021-12-14] MEDS ORDERED: DEXMEDETOMIDINE 400 MCG in SODIUM CHLORIDE 0.9% 96 ML IV PRN
[2021-12-14] MEDS: ALBUTEROL/IPRATROPIUM 3 ML NEB RESP TX SCH ×4 (00:32→21:20)
[2021-12-14] MEDS: INSULIN REGULAR 100 UNIT/ML SUBCUT SCH ×4 (00:34→18:24)
[2021-12-14] MEDS: MORPHINE 2 MG/1 ML SYRINGE IV PRN ×16 (01:00→23:43)
[2021-12-14] MEDS: LORazepam 2 MG/1 ML VIAL IV PRN ×11 (01:12→23:55)
[2021-12-14 03:47] LABS: Basophils % 0.1 % (0.0-0.8); Hematocrit 29.3 VOL% (35.7-47.0); Hemoglobin 9.1 GM/DL (12.0-16.0); Immature Granulocytes % 0.8 %; Immature Granulocytes Absolute 0.06 #; Lymphocytes # 0.2 10*3/uL (1.4-4.0); Lymphocytes % 2.2 % (21.3-54.2); Mean Corpuscular HGB Conc 31.1 GM/DL (32-36); Mean Corpuscular Volume 90.7 FL (87-102); Mean Platelet Volume 10.3 FL (9.6-12.0); Monocytes # 0.1 10*3/uL (0.11-0.8); Monocytes % 1.7 % (1.7-12.7); Neutrophils % 95.2 % (38.7-73.9); Platelet Count 275 T/CUMM (130-400); Red Blood Count 3.23 MC/CUMM (3.8-5.5); Red Cell Distribution Width 15.6 % (9.3-17.3); White Blood Count 7.2 T/CUMM (4-12)
[2021-12-14 03:57] LABS: Arterial Base Excess iSTAT 7 MMOL/L (-2.5-2.5); Arterial Bicarbonate iSTAT 32.3 MMOL/L (20-26); Arterial O2 Saturation iSTAT 99 % (95-100); Arterial PCO2 iSTAT 50 MM HG (35-48); Arterial PO2 iSTAT 131 MM HG (80-95); Arterial Total CO2 iSTAT 34 MMO/L (23-27); Arterial pH iSTAT 7.419 (7.35-7.45)
[2021-12-14] MEDS: VANCOMYCIN 50 MG/ML 60 ML/BOTTLE PO SCH ×4 (04:02→22:27)
[2021-12-14 04:09] LABS: Hypochromia Slight; Lymphocytes 3 % (20-55); Platelet Estimate Adequate; Total Cells Counted 100
[2021-12-14 04:14] LABS: Albumin 1.7 G/DL (3.4-5.0); Bilirubin,Total 0.4 MG/DL (0.20-1.00); Calcium 8.2 MG/DL (8.5-10.1); Osmolality,Calculated 281.8 MOS/KG (273-304); Potassium 4.3 MMOL/L (3.5-5.1); Total Protein 5.4 G/DL (6.4-8.2)
[2021-12-14] MEDS: MORPHINE 2 MG/1 ML SYRINGE IV SCH ×4 (04:18→22:28)
[2021-12-14] MEDS: ALPRAZolam 0.5 MG TABLET PO SCH ×3 (10:18→20:54)
[2021-12-14] MEDS: buPROPion 75 MG TABLET PO SCH ×2 (10:18→20:54)
[2021-12-14] MEDS: cefTRIAXone 1,000 MG in SODIUM CHLORIDE 0.9% 100 ML IV SCH (10:18)
[2021-12-14] MEDS: POLYETHYLENE GLYCOL POWDER 17 GM PACK PO SCH (10:18)
[2021-12-14] MEDS: FAMOTIDINE 20 MG/2 ML VIAL IV SCH (10:19)
[2021-12-14] MEDS: methylPREDNISolone SOD SUC 40 MG/1 ML VIAL IV SCH ×2 (10:19→22:27)
[2021-12-14] MEDS: INSULIN GLARGINE 100 UNIT/ML SUBCUT SCH (10:20)
[2021-12-14] MEDS: QUEtiapine 25 MG TABLET PO SCH ×2 (10:47→20:54)
[2021-12-14] MEDS: VANCOMYCIN INJ 1,000 MG in SODIUM CHLORIDE 0.9% 250 ML IV SCH (15:32)
[2021-12-15] MEDS: MORPHINE 2 MG/1 ML SYRINGE IV PRN ×20 (00:25→21:55)
[2021-12-15] MEDS: ALBUTEROL/IPRATROPIUM 3 ML NEB RESP TX SCH ×5 (01:05→23:53)
[2021-12-15] MEDS: LORazepam 2 MG/1 ML VIAL IV PRN ×5 (05:49→22:07)
[2021-12-15] MEDS: VANCOMYCIN 50 MG/ML 60 ML/BOTTLE PO SCH ×4 (06:49→22:30)
[2021-12-15] MEDS ORDERED: FUROSEMIDE 40 MG/4 ML VIAL IV ONE (07:02)
[2021-12-15] MEDS: MORPHINE 2 MG/1 ML SYRINGE IV SCH ×3 (07:14→16:11)
[2021-12-15] MEDS: INSULIN REGULAR 100 UNIT/ML SUBCUT SCH ×4 (07:15→17:05)
[2021-12-15] MEDS: buPROPion 75 MG TABLET PO SCH ×2 (09:08→22:30)
[2021-12-15] MEDS: QUEtiapine 25 MG TABLET PO SCH ×2 (09:08→22:30)
[2021-12-15] MEDS: INSULIN GLARGINE 100 UNIT/ML SUBCUT SCH (09:08)
[2021-12-15] MEDS: POLYETHYLENE GLYCOL POWDER 17 GM PACK PO SCH (09:08)
[2021-12-15] MEDS: ALPRAZolam 0.5 MG TABLET PO SCH ×3 (09:09→22:30)
[2021-12-15] MEDS: methylPREDNISolone SOD SUC 40 MG/1 ML VIAL IV SCH (09:34)
[2021-12-15] MEDS: cefTRIAXone 1,000 MG in SODIUM CHLORIDE 0.9% 100 ML IV SCH (09:34)
[2021-12-15] MEDS: FAMOTIDINE 20 MG/2 ML VIAL IV SCH (09:45)
[2021-12-15 09:50] LABS: Basophils % 0.2 % (0.0-0.8); Hematocrit 36.1 VOL% (35.7-47.0); Hemoglobin 11.4 GM/DL (12.0-16.0); Immature Granulocytes % 0.7 %; Immature Granulocytes Absolute 0.06 #; Lymphocytes # 0.3 10*3/uL (1.4-4.0); Lymphocytes % 3.1 % (21.3-54.2); Mean Corpuscular HGB Conc 31.6 GM/DL (32-36); Mean Corpuscular Volume 90.9 FL (87-102); Mean Platelet Volume 10.4 FL (9.6-12.0); Monocytes # 0.3 10*3/uL (0.11-0.8); Platelet Count 322 T/CUMM (130-400); Red Blood Count 3.97 MC/CUMM (3.8-5.5); White Blood Count 8.3 T/CUMM (4-12)
[2021-12-15 10:11] LABS: Band Neutrophils 7 % (0-10); Hypochromia Slight; Lymphocytes 5 % (20-55); Total Cells Counted 100
[2021-12-15 10:12] LABS: Microcytosis 1+
[2021-12-15 10:21] LABS: Bilirubin,Total 0.6 MG/DL (0.20-1.00); Osmolality,Calculated 283.4 MOS/KG (273-304); Potassium 4.6 MMOL/L (3.5-5.1); Total Protein 6.7 G/DL (6.4-8.2)
[2021-12-15] MEDS: VANCOMYCIN INJ 1,000 MG in SODIUM CHLORIDE 0.9% 250 ML IV SCH (15:09)
[2021-12-16] MEDS: LORazepam 2 MG/1 ML VIAL IV PRN ×6 (00:08→13:35)
[2021-12-16] MEDS: MORPHINE 2 MG/1 ML SYRINGE IV PRN ×8 (00:08→09:19)
[2021-12-16] MEDS: MORPHINE 2 MG/1 ML SYRINGE IV SCH ×3 (01:24→09:38)
[2021-12-16] MEDS: methylPREDNISolone SOD SUC 40 MG/1 ML VIAL IV SCH ×2 (01:29→09:17)
[2021-12-16] MEDS: INSULIN REGULAR 100 UNIT/ML SUBCUT SCH ×2 (01:30→06:38)
[2021-12-16 03:49] LABS: Basophils % 0.3 % (0.0-0.8); Hematocrit 34.6 VOL% (35.7-47.0); Hemoglobin 10.6 GM/DL (12.0-16.0); Immature Granulocytes % 0.6 %; Immature Granulocytes Absolute 0.04 #; Lymphocytes # 0.4 10*3/uL (1.4-4.0); Lymphocytes % 5.9 % (21.3-54.2); Mean Corpuscular HGB Conc 30.6 GM/DL (32-36); Mean Corpuscular Volume 94.3 FL (87-102); Mean Platelet Volume 9.7 FL (9.6-12.0); Monocytes # 0.4 10*3/uL (0.11-0.8); Monocytes % 5.8 % (1.7-12.7); Neutrophils % 87.4 % (38.7-73.9); Platelet Count 321 T/CUMM (130-400); Red Blood Count 3.67 MC/CUMM (3.8-5.5); White Blood Count 6.2 T/CUMM (4-12)
[2021-12-16 04:09] LABS: Band Neutrophils 7 % (0-10); Lymphocytes 8 % (20-55); Total Cells Counted 100
[2021-12-16 04:10] LABS: Microcytosis 1+; Platelet Estimate Normal
[2021-12-16] MEDS: VANCOMYCIN 50 MG/ML 60 ML/BOTTLE PO SCH ×2 (04:47→09:00)
[2021-12-16] MEDS: ALBUTEROL/IPRATROPIUM 3 ML NEB RESP TX SCH (07:09)
[2021-12-16] MEDS: INSULIN GLARGINE 100 UNIT/ML SUBCUT SCH (08:51)
[2021-12-16] MEDS: buPROPion 75 MG TABLET PO SCH (08:51)
[2021-12-16] MEDS: QUEtiapine 25 MG TABLET PO SCH (08:51)
[2021-12-16] MEDS: POLYETHYLENE GLYCOL POWDER 17 GM PACK PO SCH (08:51)
[2021-12-16] MEDS: ALPRAZolam 0.5 MG TABLET PO SCH (08:52)
[2021-12-16] MEDS: FAMOTIDINE 20 MG/2 ML VIAL IV SCH (09:18)
[2021-12-16] MEDS: cefTRIAXone 1,000 MG in SODIUM CHLORIDE 0.9% 100 ML IV SCH (09:41)
[2021-12-16] MEDS ORDERED: MORPHINE 2 MG/1 ML SYRINGE IV PRN (10:41)
== END 2021-12-16 14:00 | disposition hospice, inpatient (51) | DRG 870 ==
LOC: EDUNIT# → EDBD → N.ED 10:21 → SUATTDRO 13:14 → N.EDINP 13:14 → N.CC 16:19
PROVIDERS: ADMIT Internal Medicine; ATTEND Internal Medicine

== ENCOUNTER 2021-12-16 14:00 | Inpatient (IN) ==
[2021-12-16] MEDS ORDERED: MORPHINE 2 MG/1 ML SYRINGE ONE (15:21)
[2021-12-16] MEDS ORDERED: MORPHINE 2 MG/1 ML SYRINGE IV PRN (15:26)
[2021-12-16] MEDS ORDERED: LORazepam 2 MG/1 ML VIAL IV PRN (15:26)
[2021-12-16 16:17] VITALS: BP 0/0
== END 2021-12-16 15:53 | disposition expired | DRG 951 ==
LOC: N.CC 14:00
PROVIDERS: ADMIT Internal Medicine; ATTEND Internal Medicine